=== PATIENT | female | born 1980 | race Asian ===

== ENCOUNTER 2017-01-03 09:50 | Inpatient (IN) | payer OTHER ==
[~2017-01-03] VITALS: Ht 175.3 cm; Wt 102.7 kg
[2017-01-03 10:17] VITALS: BP 128/72; PULSE 81; RESP 18
[2017-01-03 10:21] VITALS: Ht 175.3 cm; Wt 102.7 kg
[2017-01-03] MEDS ORDERED: CEFAZOLIN 2 GM/50 ML (PMX) 50 ML IV SCH (10:30)
[2017-01-03] MEDS ORDERED: METHYLERGONOVINE 0.2 MG INJ IM PRN ×2 (10:30→16:30)
[2017-01-03] MEDS ORDERED: MISOPROSTOL 200 MCG TAB PR PRN ×2 (10:30→16:30)
[2017-01-03] MEDS ORDERED: OXYTOCIN 30 UNITS/LR 500 ML IV SCH (10:30)
[2017-01-03] MEDS ORDERED: OXYTOCIN 30 UNITS/LR 500 ML IV PRN ×2 (10:30→16:30)
[2017-01-03] MEDS ORDERED: CARBOPROST 250 MCG INJ IM PRN ×2 (10:30→16:30)
[2017-01-03 10:35] LABS: BASOPHILS % 0.4 % (0.0-2.0); EOSINOPHILS # 0.1 10^3/ul (0.0-0.5); EOSINOPHILS % 1.1 % (0.0-7.0); HEMATOCRIT 36.3 % (37.0-47.0); HEMOGLOBIN 11.3 g/dl (12.0-16.0); LYMPHOCYTES % 26.4 % (15.0-51.0); MEAN CORPUSCULAR HEMOGLOBIN 21.9 pg (29.0-33.0); MEAN CORPUSCULAR HGB CONC 31.1 g/dl (32.0-37.0); MEAN CORPUSCULAR VOLUME 70.5 fl (82.0-101.0); MEAN PLATELET VOLUME 9.7 fl (7.4-10.4); MONOCYTE # 0.5 10^3/ul (0.3-0.9); NEUTROPHIL # 4.9 10^3/ul (1.6-7.5); NEUTROPHILS % 65.2 % (39.0-77.0); NUCLEATED RED BLOOD CELLS% 0.3 /100WBC (0.0-0.0); PLATELET COUNT 302 10^3/UL (140-415); RED BLOOD COUNT 5.15 10^6/ul (4.20-5.40); RED CELL DISTRIBUTION WIDTH 17.3 % (11.5-14.5); WHITE BLOOD COUNT 7.5 10^3/ul (4.8-10.8)
[2017-01-03 10:54] LABS: INR 0.88; PROTIME 11.9 Sec (12.2-14.2); PT RATIO 0.9
[2017-01-03 10:55] LABS: PARTIAL THROMBOPLASTIN TIME 29.2 Sec (25.0-35.0)
[2017-01-03] MEDS: LACTATED RINGER'S 1,000 ML IV SCH ×2 (11:23→12:08)
[2017-01-03] MEDS ORDERED: ONDANSETRON 4 MG INJ IV PRN ×2 (11:30→13:30)
[2017-01-03] MEDS ORDERED: CITRIC ACID/NA CITRATE 30 ML CUP PO PRN (11:30)
[2017-01-03] MEDS ORDERED: ONDANSETRON 4 MG INJ IV STA (12:08)
[2017-01-03] MEDS ORDERED: CITRIC ACID/NA CITRATE 30 ML CUP PO ONE (12:30)
[2017-01-03] MEDS ORDERED: DEXAMETHASONE 4 MG/ML 1 ML INJ ONE (12:34)
[2017-01-03] MEDS ORDERED: PHENYLephrine (100 MCG/ML) 5ML SYG ONE ×2 (12:34→13:16)
[2017-01-03] MEDS ORDERED: KETOROLAC 30 MG INJ ONE (12:34)
[2017-01-03] MEDS ORDERED: METOCLOPRAMIDE 10 MG INJ ONE (12:34)
[2017-01-03] MEDS ORDERED: OXYTOCIN 10 UNIT INJ ONE (12:34)
[2017-01-03] MEDS ORDERED: morphine SULFATE/PF (10 MG/10 ML) INJ ONE (12:34)
[2017-01-03] MEDS ORDERED: HYDROCODONE/APAP (5/325) TAB PO PRN (13:30)
[2017-01-03] MEDS ORDERED: NALOXONE (0.4 MG/ML) INJ IV PRN (13:30)
[2017-01-03] MEDS ORDERED: morphine 2 MG INJ IV PRN (13:30)
[2017-01-03] MEDS ORDERED: DIPHENHYDRAMINE 50 MG INJ IV PRN (13:30)
[2017-01-03] MEDS ORDERED: HYDROmorphONE 0.5 MG/0.5 ML SYG IV PRN ×2 (13:30)
[2017-01-03] MEDS ORDERED: ACETAMINOPHEN 500 MG TAB PO PRN (13:30)
[2017-01-03] MEDS ORDERED: NALBUPHINE HCL (10 MG/1 ML) INJ IV PRN (13:30)
[2017-01-03] MEDS ORDERED: morphine 4 MG/ML VIAL IV PRN (13:30)
--- NOTE | 2017-01-03 13:45 | OPR ---
Operative Report Planned Procedure Free Text/Dictation 36 years old [place] female [id number] history of previous EDC January 10, 2017 admitted at 39 weeks gestation repeat Procedure date Jan 03, 2017 Procedure(s) Repeat Performed by see signature line Assisting provider: REED KENT MD Anesthesiologist: KISHAN GALLO MD Pre-procedure diagnosis 39 weeks history of previous Anesthesia Type: spinal Procedure Description Under satisfactory [final] anesthesia, the patient prepped and draped and placed in a supine position, tilted to the left. Pfannenstiel incision was made , carried through the subcutaneous tissue. Bleeders brought under control with electrocautery. Fascia incised to the length of the incision. Rectus muscles from the fascia, divided midline. Peritoneum exposed, entered through a transverse incision. Exploration of abdomen revealed gravid uterus normal- appearing tubes and ovaries. Bladder flap was developed. Transverse incision was made in the lower segment of the uterus. Amniotic sac ruptured. [Clear] amniotic fluid noted live baby girl was delivered from unengaged vertex. [] Nasal oropharyngeal suction was performed. The baby was handed to the team for immediate attention. Patient received 20 units of Pitocin placenta delivered manually intact. Uterine cavity cleaned with wet sponge and drainage established. Uterus closed in 2 layers using [Monocryl #1] in continuous fashion. Peritoneal cavity irrigated with warm saline. Sponge, needle and instrument count reported to be correct. Abdominal peritoneum closed with 0 chromic catgut [] continuously. Rectus muscle approximated with 0 chromic catgut []. Fascia closed with [#1 PDS], cutaneous tissue approximated with few interrupted 2-0 chromic catgut skin closed with N sorb estimated blood loss 600 cc urine bag contained 200 cc of clear urine patient tolerated procedure well transferred to recovery room in good condition, Post-Procedure Findings: Live Baby girl Apgars 8 and 8 baby waited 4035 g Estimated blood loss: other (600 cc) Specimen(s): no Grafts/Implants: no Complication(s): no Pt Condition post procedure: stable Physician Certification I, the undersigned physician, hereby certify that I have discussed the procedure described in this consent form with this patient (or the patient's legal sales representatives), including: * The risk and benefits of the procedure; * Any adverse reactions that may reasonably be expected to occur; * Any alternative efficacious methods of treatment which may be medically viable ; * The potential problems that may occur during recuperation; * Potential for blood transfusion and associated risks/benefits; and * Any research or economic interest I may have regarding this treatment. I further certify that the patient/legally responsible person was encouraged to ask question and that all questions were answered. DANIEL BLANTON MD Jan 03, 2017 13:45
--- NOTE | 2017-01-03 13:54 | HP ---
Date/Time of Note Date/Time of Note DATE: 01/03/17 TIME: 13:45 OB - History Hx of Present Free Text/Dictation 36 years old [place] female [id number] EDC January 10, 2017 history of previous section admitted to [facility] at 39 weeks gestation for repeat section She has been under the care of the [facility] and her was complicated with gestational diabetes diet-controlled Chief Complaint: 39 weeks history of previous Estimated Due Date: Jan 10, 2017 : 3 Para: 1 Spontaneous : 1 Care: Good Care Ultrasounds: Normal mid trimester US Obstetrical Complications: Gestational Diabetes Medical Complications: None Past Family/Social History * Past Medical, Surgical, Family and Obstetric Histories reviewed from chart. Rubella: immune RPR/VDRL: Negative GBS Status: Negative HBsAG: Negative OB Admission Exam Vital Signs Vital Signs Vital Signs Date Time Temp Pulse Resp B/P Pulse Ox O2 Delivery O2 Flow Rate FiO2 01/03/17 10:17 97.8 81 18 128/72 98 Room Air Physical Exam HEENT: WNL Heart: Rhythm Normal Lungs: Clear, Equal Abdomen: WNL Extremities: Normal Reflexes: Normal Membranes: Intact Heart Rate: 130's Accelerations: Accelerations Present Decelerations: No Decelerations Varibility: Moderate Last 72 hours Lab Results CBC & BMP 01/03/17 10:08 01/03/17 10:23 OB Assessment/Plan Reason for admission: other (39 weeks history of previous ) Other plan: 36 years old [place] female history of previous with EDC January 10, 2017 admitted to [facility] at 39 weeks gestation for repeat section patient has been counseled regarding the complication of surgery including but not limited to bowel and bladder injury infection wound hematoma, wound infection and she is willing to go ahead with this procedure. DANIEL BLANTON MD Jan 03, 2017 13:54
[2017-01-03] MEDS ORDERED: METF500T4 PO (15:35)
[2017-01-03] MEDS ORDERED: NPH,100V SQ (15:35)
[2017-01-03] MEDS ORDERED: MTF1000T PO (15:35)
[2017-01-03 16:00] VITALS: BP 105/69; PULSE 61; RESP 19
[2017-01-03] MEDS ORDERED: LANOLIN 7 GM TUBE TOP PRN (16:30)
[2017-01-03] MEDS ORDERED: CEFAZOLIN 1 GM/50 ML (PMX) 50 ML IVPB SCH (17:00)
[2017-01-03] MEDS: OXYTOCIN 30 UNITS/LR 500 ML IV SCH ×2 (17:10→23:06)
[2017-01-03 19:45] VITALS: BP 126/68; PULSE 86; RESP 19
[2017-01-04] VITALS: BP 120/65; PULSE 81; RESP 19
[2017-01-04] MEDS: OXYTOCIN 30 UNITS/LR 500 ML IV SCH ×4 (02:13→12:03)
[2017-01-04 04:00] VITALS: BP 105/66; RESP 18
[2017-01-04] MEDS: KETOROLAC 30 MG INJ IV PRN ×2 (06:20→12:36)
[2017-01-04] MEDS: LACTATED RINGER'S 1,000 ML IV SCH ×2 (06:31→13:30)
[2017-01-04 07:45] VITALS: BP 99/57; PULSE 84; RESP 18
[2017-01-04 09:19] LABS: BASOPHILS % 0.3 % (0.0-2.0); EOSINOPHILS % 0.3 % (0.0-7.0); HEMATOCRIT 29.9 % (37.0-47.0); HEMOGLOBIN 9.3 g/dl (12.0-16.0); LYMPHOCYTES # 1.8 10^3/ul (0.8-2.9); LYMPHOCYTES % 16.3 % (15.0-51.0); MEAN CORPUSCULAR HEMOGLOBIN 22.1 pg (29.0-33.0); MEAN CORPUSCULAR HGB CONC 31.1 g/dl (32.0-37.0); MEAN CORPUSCULAR VOLUME 71.2 fl (82.0-101.0); MEAN PLATELET VOLUME 9.8 fl (7.4-10.4); MONOCYTE # 0.7 10^3/ul (0.3-0.9); MONOCYTES % 6.7 % (0.0-11.0); NEUTROPHIL # 8.3 10^3/ul (1.6-7.5); NEUTROPHILS % 75.9 % (39.0-77.0); PLATELET COUNT 242 10^3/UL (140-415); RED CELL DISTRIBUTION WIDTH 16.2 % (11.5-14.5); WHITE BLOOD COUNT 10.9 10^3/ul (4.8-10.8)
[2017-01-04] MEDS: SENNA/DOCUSATE NA (8.6MG/50MG) TAB PO SCH ×2 (09:45→21:00)
[2017-01-04 12:00] VITALS: BP 118/71; PULSE 98; RESP 20
--- NOTE | 2017-01-04 12:53 | QN ---
Documentation Comment Post day 1 Afebrile, vital signs are stable Dominant soft, bowel sounds present, incision dry, lochia moderate, extremity normal Ambulation encouraged DANIEL BLANTON MD Jan 04, 2017 12:53
[2017-01-04] MEDS ORDERED: OXYCODONE/ACETAMINOPHEN (5/325) TAB PO PRN (13:00)
[2017-01-04 16:00] VITALS: BP 116/65; PULSE 99; RESP 18
[2017-01-04] MEDS ORDERED: INFLUENZA VIRUS VACCINE 0.5 ML SYG IM* ONE (18:00)
[2017-01-04] MEDS: IBUPROFEN 600 MG TAB PO SCH ×2 (18:17→23:44)
[2017-01-04 19:55] VITALS: BP 115/57; PULSE 82; RESP 18
[2017-01-04] MEDS: HYDROCODONE/APAP (5/325) TAB PO PRN (19:59)
[2017-01-05] MEDS: LACTATED RINGER'S 1,000 ML IV SCH (00:49)
[2017-01-05] MEDS: HYDROCODONE/APAP (5/325) TAB PO PRN ×2 (02:24→21:40)
[2017-01-05 04:22] VITALS: BP 108/65; PULSE 84; RESP 17
[2017-01-05] MEDS: IBUPROFEN 600 MG TAB PO SCH ×3 (05:51→17:23)
[2017-01-05 07:45] VITALS: BP 122/63; PULSE 89; RESP 20
[2017-01-05] MEDS: SENNA/DOCUSATE NA (8.6MG/50MG) TAB PO SCH ×2 (09:01→21:07)
--- NOTE | 2017-01-05 10:51 | QN ---
Documentation Comment Post day 2 Afebrile Signs are stable Abdomen soft incision dry bowel sounds present, no bowel movement Extremity normal Plan of possible a.m. discharge discussed with the patient DANIEL BLANTON MD Jan 05, 2017 10:51
[2017-01-05] MEDS ORDERED: NA PHOSPHATE/BIPHOS 133 ML ENEMA PR ONE (11:00)
[2017-01-05] MEDS: OXYCODONE/ACETAMINOPHEN (5/325) TAB PO PRN ×2 (11:55→15:59)
[2017-01-05 15:14] VITALS: BP 130/80; PULSE 86; RESP 20
[2017-01-05] MEDS ORDERED: INFLUENZA VIRUS VACCINE 0.5 ML SYG IM* ONE (19:00)
[2017-01-05 19:40] VITALS: BP 132/73; PULSE 91; RESP 18
[2017-01-06] MEDS: IBUPROFEN 600 MG TAB PO SCH ×4 (00:04→17:16)
[2017-01-06] MEDS: HYDROCODONE/APAP (5/325) TAB PO PRN (01:37)
[2017-01-06 04:35] VITALS: BP 105/62; PULSE 90; RESP 18
[2017-01-06 08:18] VITALS: BP 115/57; PULSE 70; RESP 18
[2017-01-06] MEDS: SENNA/DOCUSATE NA (8.6MG/50MG) TAB PO SCH (08:30)
[2017-01-06] MEDS ORDERED: DIPHTH/TET/ACEL PERTUSS (ADULT) 0.5 ML VIAL IM* ONE (09:00)
--- NOTE | 2017-01-06 09:40 | PD.PPDC ---
CAMP COUNSELOR Discharge Instruction Condition Patient Condition: Good Diet Diet: Resume Regular Diet Activity/Restrictions Activity: Normal Activity May Shower Wound/Drain Care Instructions Wound/Drain Care Instructions: Remove Steri Strips in 1 week Follow-up Follow-up with Physician: 1, Week/Weeks Provider Information: Post instructions given recommended to make appointment to be seen at the clinic in 1 week Return to clinic for TECHNICAL PROJECT LEAD Instructions: Fever greater than 101 Chills Worsening abdominal pain Excessive Vaginal Bleeding More than 2 pads per hour Unable to tolerate diet OB Instructions: Breast Tenderness Depression Blurried Vision Headache Surgical Instructions: Incisional Drainage Incisional Redness DANIEL BLANTON MD Jan 06, 2017 09:40
--- NOTE | 2017-01-06 09:54 | DS ---
Date/Time of Note Date/Time of Note DATE: 01/06/17 TIME: 09:51 Discharge Summary Admission/Discharge Info Admit Date/Time Jan 03, 2017 at 09:50 Discharge Date/Time January 06, 2017 at 950 Discharge Diagnosis Post repeat date 3 Patient Condition: Good Procedures Repeat Hx of Present Illness Term history of previous complicated with gestational diabetes insulin-dependent Hospital Course Satisfactory recovery Home Meds Reported Medications Metformin* (Glucophage*) 500 Mg Tab, 500 MG PO WITH LUNCH DINNER, #60 TAB 01/03/17 Metformin* (Glucophage*) 1,000 Mg Tablet, 1000 MG PO DAILY, #30 TAB 01/03/17 Insulin NPH Human Isophane (Humulin N) 100 Unit/1 Ml Vial, 12 UNIT SQ QHS for ELEVATED GLUCOSE, VIAL 01/03/17 Follow-up Plan Patient discharged home with instructions for home wound care, 2200-calorie diet to make appointment to be seen at the clinic in 1 week Primary Care Provider Not On Staff Doctor Time spent on discharge: < 30 minutes Pending Labs Laboratory Tests Test 01/05/17 11:09 01/05/17 15:04 01/05/17 21:06 01/06/17 08:26 Bedside Glucose 93mg/dL (70-220) 107mg/dL (70-220) 113mg/dL (70-220) 103mg/dL (70-220) DANIEL BLANTON MD Jan 06, 2017 09:54
[2017-01-06] MEDS ORDERED: NA PHOSPHATE/BIPHOS 133 ML ENEMA PR ONE (10:00)
[2017-01-06] MEDS: OXYCODONE/ACETAMINOPHEN (5/325) TAB PO PRN (13:43)
== END 2017-01-06 17:54 | disposition home or self-care (01) | DRG 766 ==
LOC: L-D 09:50 → PP1 16:23
PROVIDERS: ADMIT Obstetrics & Gynecology; ATTEND Obstetrics & Gynecology
PROC: 3E0P3VZ Introduction of Hormone into Female Reproductive, Percutaneous Approach (ICD-10-PCS; 2017-01-03)
PROC: 10D00Z1 Extraction of Products of Conception, Low, Open Approach (ICD-10-PCS; principal; 2017-01-03 12:30)
DX: O34.211 Maternal care for low transverse scar from previous cesarean delivery (principal); O24.429 Gestational diabetes mellitus in childbirth, unspecified control; Z37.0 Single live birth; Z3A.39 39 weeks gestation of pregnancy
CPT/HCPCS: 82947; 82962; 85025; 85610; 85730; 86592; 86850; 86900; 86901; 87340; 90686; 90715; 94760; 99464; J0690; J1100; J1885; J2274; J2370; J2405; J2590; J2765; J7120